=== PATIENT | male | born 1990 ===

== ENCOUNTER 2021-02-27 22:03 | Emergency (ER) | payer SELFPAY ==
[~2021-02-27] VITALS: Ht 193 cm; Wt 135.1 kg
[2021-02-27] MEDS ORDERED: WELLTAB38 PO (22:09)
[2021-02-28 02:10] VITALS: BP 137/81
[2021-02-28] MEDS ORDERED: KETOROLAC 60MG 2ML VIAL IM ONE (02:10)
== END 2021-02-28 04:07 | disposition left against medical advice (07) ==
LOC: M ED 22:03
DX: Z53.21 Procedure and treatment not carried out due to patient leaving prior to being seen by health care provider (principal)